=== PATIENT | male | born 1955 | race Caucasian/White ===

== ENCOUNTER 2024-07-26 11:14 | Emergency (ER) | payer MEDICARE ==
[~2024-07-26] VITALS: Ht 172.7 cm; Wt 95.3 kg
--- NOTE | 2024-07-26 11:41 | ERN ---
General Chief Complaint: Flu Symptoms Stated Complaint: FLU SYMPTOMS Time Seen by MD: 11:15 History of Present Illness Initial Comments 69-year-old male with flu-like symptoms. He reports three or four days of cough congestion sinus pressure sore throat and body aches. Briefly had a fever but he says that it may have resolved. He does have a mild cough, some production. No dyspnea no chest pain. No vomiting or diarrhea. P.o. tolerant. No other complaints. Has a winter [place] without any outpatient care in the area. Allergies: Coded Allergies: No Known Allergies (Unverified Allergy, Unknown, 07/26/24) Past Medical History Past Medical History: High Cholesterol Past Surgical History: Other ROS Dictation CONSTITUTIONAL: Headache body aches chills HEAD/FACE: No signs of trauma. EENT: Sore throat RESPIRATORY: Mildly productive cough CARDIOVASCULAR: No chest pain, no edema, no palpitations, no syncope. GASTROINTESTINAL/ABDOMINAL: No abdominal pain, no constipation, no diarrhea, no nausea, no vomiting. GENITOURINARY: No abnormal discharge, no dysuria, no frequent urination, no hematuria. No complaints of pain in the genitals. MUSCULOSKELETAL: No back pain, no gout, no joint pain, no joint swelling, no muscle pain, no muscle stiffness, no neck pain. INTEGUMENTARY: No change in color, no change in hair/nails, no dryness, no lesion, no lumps, no rash. NEUROLOGICAL/PSYCH: No anxiety, not depressed, no emotional problem, no headache, no numbness, no pre-existing deficit, no history of seizures, no tremors, no weakness. HEMATOLOGIC/LYMPHATIC: Not anemic, no history of blood clots, no apparent bleeding, no bruising, glands not swollen. All Systems Negative, Except as Noted. Physical Exam Physical Exam Dictation VITAL SIGNS: Reviewed. GENERAL APPEARANCE: Alert, oriented x3, no acute distress. HEAD AND FACE: Non-traumatic. EYES: PERRL, pink conjunctivas, eyelid no trauma, anterior chamber clear. EARS: Pinnas intact and no signs of trauma or erythema. Ear canals clear and no discharge. TMs no erythema. NOSE: No discharge, no bleeding. OROPHARYNX: Mouth normal, teeth no caries, tongue pink. Pharynx clear, no erythema. Tonsils no exudates, no abscesses noted. Mucous membrane moist. NECK: Supple, non-tender, no thyromegaly, no masses, no JVD, no bruits. BREAST: Deferred. CHEST: No tenderness, no crepitus, no paradoxical movement, no retractions. LUNGS: Clear, well-ventilated, symmetric, no rales, no wheezing, no rhonchi, no stridor, good breath sounds bilaterally. HEART: Regular rate, regular rhythm, no murmur, no gallops. VASCULAR: No peripheral edema. ABDOMEN: Soft, positive bowel sounds, nondistended, no guarding, nontender, no rebound, no masses no hepatomegaly, no splenomegaly, no Puente's sign, no hernias. RECTAL: Deferred. GENITAL: Deferred. NEUROLOGICAL: Normal speech, gross motor function intact, gross sensory function intact. MUSCULOSKELETAL: Neck nontender, full range of motion, back nontender, full range of motion. EXTREMITIES: Nontender, full range of motion. SKIN: Color pink, dry, no turgor, no rash, no lacerations, no abrasions, no contusions. LYMPHATICS: Deferred. Results Laboratory and Microbiology Lab and Micro Result Laboratory Tests Test 07/26/24 11:29 Influenza Type A Antigen Negative For Type A Influenza Type B Antigen Negative For Type B SARS-CoV-2 Antigen (Rapid) PRESUMPTIVE NEGATIVE MDM CC: Cough congestion sore throat body aches for three days now Historian: Patient Comorbidities: Dyslipidemia Differential diagnosis: Flu viral URI sinusitis community-acquired pneumonia other Vital signs are stable, remained stable here in the ER. Lung sounds surgeon coarseness only has a mild productive cough. The ENT exam is of in his unremarkable. CXR ( independently ordered and interpreted by me): No focal infiltrates cardiomegaly independently interpreted by me The flu and SARS are negative Symptoms may be related to community-acquired pneumonia based on the patient's presentation. We will treat with a short course of antibiotics and [id number] medications as needed. Patient agrees with the plan. ED Course Orders Procedure Category Date Status Time Covid19 (Sars Antigen LAB 07/26/24 Complete Rapid) 11:20 Influenza Type A & B, LAB 07/26/24 Complete Rapid 11:20 Chest 1vw RAD 07/26/24 Taken 11:20 Vital Signs Date Time Temp Pulse Resp B/P (MAP) Pulse Ox O2 Delivery O2 Flow Rate FiO2 07/26/24 11:27 98.2 86 20 143/88 99 0 DX & DISP Disposition: Discharge Departure Impression: Primary Impression: Community acquired pneumonia Condition: Stable Scripts Amoxicillin/Potassium Clav (Amox Tr-K Clv 875-125 mg Tab) 875 Mg-125 Mg Tablet 1 TAB PO BID for 7 Days, #14 TAB 0 Refills Prov: MARGI CROWELL DO 07/26/24 Additional Instructions: Based on your presentation you may have a mild community-acquired pneumonia. Your vital signs have been stable here in the ER. Your flu and SARS are swabs are negative. Your x-ray shows some mild congestion but is otherwise unremarkable. I have prescribed Augmentin, which is an antibiotic. Please take as prescribed. I recommend that you take [id number] cough and cold medications as needed for your symptoms. Be sure to drink plenty of liquids. Please return to the emergency department if you have any concerns. Referrals: SELF,REFERRAL (PCP) MARGI CROWELL DO Jul 26, 2024 11:41
[2024-07-26 12:15] LABS: COVID19 (SARS ANTIGEN RAPID) PRESUMPTIVE NEGATIVE (NEGATIVE); INFLUENZA TYPE A Negative For Type A (NEGATIVE); INFLUENZA TYPE B Negative For Type B (NEGATIVE)
[2024-07-26] MEDS ORDERED: AMOX1TAB16 PO (12:27)
--- NOTE | 2024-07-26 12:56 | HMCIMG ---
Exam Type: CHEST 1VW Clinical Information: cough Comparison: None Findings: Ill-defined infiltrates of the left lower lobe are seen consistent with pneumonia. . The heart is normal in size. The bony and soft tissue structures show no worrisome pathology. IMPRESSION: Findings consistent with pneumonia. Follow-up is advised.
--- NOTE | 2024-07-26 13:29 | NUR ---
PT MOVED INTO INTERNAL WAITING AREA FOR DC INSTRUCTIONS.
[2024-07-26 13:35] VITALS: BP 138/85; PULSE 87; RESP 20; TEMP 99.2; O2SAT 99
== END 2024-07-26 13:36 | disposition home or self-care (01) ==
LOC: EDH 11:14
DX: J18.9 Pneumonia, unspecified organism (principal); E78.00 Pure hypercholesterolemia, unspecified; Z20.822 Contact with and (suspected) exposure to COVID-19
CPT/HCPCS: 71045; 87426; 87804; 99284